=== PATIENT | female | born 1960 | race Caucasian/White ===

== ENCOUNTER 2019-03-01 02:27 | Emergency (ER) | payer OTHER ==
--- NOTE | 2019-03-01 03:02 | PDOC ---
History of Present Illness - General Stated Complaint: ABD PAIN Time Seen by Provider: 03/01/19 03:01 - History of Present Illness Initial Comments: 03/01/19 05:56 The patient is a 58 year old female with a history of HIV on MANCIA, DM who presents for evaluation of nausea, vomiting, abdominal pain and diarrhea. The patient reports a 1 week history of burning poorly described epigastric abdominal pain with associated nausea and multiple episodes of non-bilious, non- bloody vomiting as well as non-bloody diarrhea prompting her presentation to the ED for further evaluation. She otherwise denies sick contacts, recent travel, SOB, chest pain, or changes with urination. Past History - Travel Traveled outside of the country in the last 30 days: No - Past Medical History Allergies/Adverse Reactions: Allergies Allergy/AdvReac Type Severity Reaction Status Date / Time No Allergy Information Allergy Verified 03/01/19 03:54 Available Home Medications: Ambulatory Orders metroNIDAZOLE [Flagyl -] 500 mg PO TID #21 tablet 03/01/19 Diabetes: Yes HIV: Yes Review of Systems - Review of Systems Comments:: 03/01/19 06:07 Constitutional: No fevers, chills, fatigue, malaise HEENT: No Rhinorrhea, nasal congestion, visual changes Cardiovascular: No chest pain, syncope, palpitations, lightheadedness Respiratory: No Cough, SOB, Hemoptysis, Gastrointestinal: Abdominal pain, Nausea, Vomiting, Diarrhea, No Constipation or Melena Genitourinary: No Dysuria, Frequency, Urgency, Hesitancy, Hematuria, Flank pain Musculoskeletal: No Myalgia, arthralgia Skin: No rashes, itching, bruising, pallor Neurologic: No Headache, Dizziness, Numbness, Weakness, or Tingling Psychiatric: No Hallucinations. No SI or HI *Physical Exam - Physical Exam 03/01/19 06:08 General Appearance: Nourished. No Apparent Distress HEENT: No Pharyngeal Erythema, Tonsillar Exudate, Tonsillar Erythema Neck: No Cervical Lymphadenopathy Respiratory/Chest: Lungs Clear, Normal Breath Sounds. No Crackles, Rales, Rhonchi, Wheezing Cardiovascular: Regular Rhythm, Regular Rate. No Murmur, Gallops, Rubs Gastrointestinal/Abdominal: Normal Bowel Sounds, Soft. Mild epigastric discomfort with palpation on exam. No Guarding, Rebound, Musculoskeletal: No CVA Tenderness Extremity: Normal Capillary Refill Integumentary: Normal Color, Dry, Warm Neurologic: Fully Oriented, Alert, Normal Mood/Affect, Normal Response, ED Treatment Course - LABORATORY CBC & Chemistry Diagram: 03/01/19 03:55 03/01/19 03:55 Medical Decision Making - Medical Decision Making 03/01/19 06:09 The patient is a 58 year old female with a history of HIV on MANCIA, DM who presents for evaluation of nausea, vomiting, abdominal pain and diarrhea. Given the patient's history and physical exam, we will obtain a cbc, cmp, lipase , troponin, ekg CT abdomen/pelvis to evaluate further. We will treat with tylenol, pepcid, iv fluids, flagyl here in the ED and continue to monitor and reassess. 03/01/19 06:10 CBC, cmp, lipase, troponin are unremarkable. CT abdomen/pelvis demonstrates a possible diarrheal illness but otherwise no acute findings as preliminarily read by our vice president mission integration radiologist. The patient was reassessed and reports improvement in their symptoms. We are comfortable discharging the patient home in stable condition with primary care provider follow up on flagyl. Patient was made aware of impression and plan, return precautions discussed including but not limited to worsening pain or symptoms, fevers, or signs of infection, chest pain, respiratory distress, inability to tolerate oral intake, dehydration, syncope, or neurologic changes. The patient is to follow up with PMD and specialist as recommended within 1 week, follow up information provided and the patient will call for an appointment. The patient is to take medications as instructed for duration of time and continue with supportive care, avoid triggers and precipitants. Patient is safe for outpatient follow-up. Discharge - Discharge Information Problems reviewed: Yes Clinical Impression/Diagnosis: Abdominal pain Qualifiers: Abdominal location: unspecified location Qualified Code(s): R10.9 - Unspecified abdominal pain Vomiting Qualifiers: Vomiting type: unspecified Vomiting Intractability: unspecified Nausea presence : unspecified Qualified Code(s): R11.10 - Vomiting, unspecified Condition: Stable Disposition: HOME - Additional Discharge Information Prescriptions: metroNIDAZOLE [Flagyl -] 500 mg PO TID #21 tablet - Follow up/Referral - Patient Discharge Instructions Patient Printed Discharge Instructions: DI for Abdominal Pain-Adult, DI for Vomiting -- Adult Additional Instructions: 1) Please follow-up with your primary care doctor in the next 2-3 days. Please call tomorrow to schedule a follow up appointment. If you cannot follow up with your doctor within 1 week please return to the Emergency Department for any urgent issues. 2) Your laboratory / imaging results were normal here in the ER. 3) If you have any worsening of symptoms or any other concerns, please return to the ER immediately. Return if worsening symptoms including fevers, headache, vomiting, visual or hearing disturbances, abdominal pain, chest pain, shortness of breath, syncope, dehydration, inability to take things by mouth/vomiting, altered mental status, or worsening concerning symptoms. 4) Please continue taking your home medications as directed. Side effects may include upset stomach, abdominal pain, vomiting, or diarrhea. Do not drink alcohol with your medications. - Post Discharge Activity
--- NOTE | 2019-03-01 03:12 | PDOC ---
Attending Attestation - Resident Resident Name: Jem Neelyel - ED Attending Attestation I have performed the following: I have examined & evaluated the patient, The case was reviewed & discussed with the resident, I agree w/resident's findings & plan - HPI HPI: 03/01/19 03:16 Pt has and pain N/V/D; she has HIV 03/01/19 20:38 SHe just got back from [place] and she has vomiting. Thinks she may have eaten something and gotten food poisoning. - Physicial Exam PE: 03/01/19 20:39 Abd soft NT ND; flat; +BS; no high pitched sounds No flank pain Pt has no swelling of her legs She has nofever and no chills. Pt is A+Ox3 and she has no distress. Pt is just worried because she is losing weight This has been ongoing for a week. - Medical Decision Making 03/01/19 04:47 Labs normal 03/01/19 05:54 Patient Name: MICHELE BELLE THIS IS A PRELIMINARY REPORT FROM [facility] DATE OF SERVICE: 2019-03-01 05:04:16 IMAGES: [id number] EXAM: ABDOMEN \T\ PELVIS CT WITH CONTR HISTORY: Pain vomiting and diarrhea. Rule out colitis. COMPARISON: None. FINDINGS: Lung bases are clear. The visualized cardiac chambers are normal size and configuration. Normal liver, gallbladder, pancreas, spleen, adrenal glands and kidneys. The stomach and small bowel are normal. Scattered liquid stool without colonic wall thickening may indicate a diarrheal illness. There is no aortic aneurysm. There is no significant retroperitoneal lymphadenopathy. The appendix is normal. The uterus and adnexal structures are normal. Urinary bladder is unremarkable. There is no pelvic free fluid. No discrete pelvic lymphadenopathy is identified. IMPRESSION: Possible diarrheal illness without colonic wall thickening. 03/01/19 05:57 Pt feels better. I will send her home with flagyl, as she likely picked up trini from , where she was visiting last week Heart Score/ECG Review - ECG Intrepretation Rhythm: Regular Rhythm - [place]: Normal - QRS Poor R Wave Progression: No Q Wave Present: No - ST and T Early Repolarization: No Non Specific ST-T Wave changes: No - ECG Impressions Normal ECG: Yes Non-specific ST Elevation: No Ischemic Changes: No Bradycardia: No Torsades juliana Pointes: No
[2019-03-01] MEDS ORDERED: SODIUM CHLORIDE 1,000 ML IV STA (03:18)
[2019-03-01] MEDS ORDERED: FAMOTIDINE 20 MG/50 ML IVPB 20 MG/50 ML MG IVPB ONE ×2 (03:18→04:54)
[2019-03-01] MEDS ORDERED: ACETAMINOPHEN 1000 MG/100 ML VIAL (NON FORMULARY) IVPB ONE (03:18)
[2019-03-01] MEDS ORDERED: ONDANSETRON 4 MG/2 ML VIAL IVPUSH ONE (03:18)
[2019-03-01 03:41] VITALS: BP 109/72; PULSE 90; TEMP 98.4; BMI 23.8
[2019-03-01 04:03] LABS: BASO % 0.3 % (0-2.0); EOS % 0.4 % (0-4.5); HEMATOCRIT 43.8 % (32.4-45.2); HEMOGLOBIN 14.5 GM/dL (10.7-15.3); LYMPH % 19.1 % (8-40); MCH 27.9 pg (25.7-33.7); MCHC 33.2 g/dl (32.0-36.0); MEAN CELL VOLUME 84.1 fl (80-96); MEAN PLT VOLUME 9.3 fl (7.5-11.1); MONO % 11.2 % (3.8-10.2); PLATELET COUNT 235 K/MM3 (134-434); WHITE BLOOD COUNT 9.3 K/mm3 (4.0-10.0)
[2019-03-01 04:27] LABS: AMYLASE 54 U/L (25-115); LIPASE 117 U/L (73-393)
[2019-03-01 04:32] LABS: ALBUMIN 3.2 g/dl (3.4-5.0); BILIRUBIN,TOTAL 0.3 mg/dL (0.2-1); CALCIUM 8.8 mg/dL (8.5-10.1); CREATININE 0.6 mg/dL (0.55-1.3); TOT PROT 6.7 g/dl (6.4-8.2)
--- NOTE | 2019-03-01 13:31 | EKG ---
Test Reason : Blood Pressure : / mmHG Vent. Rate : 095 BPM Atrial Rate : 095 BPM P-R Int : 116 ms QRS Dur : 092 ms QT Int : 374 ms P-R-T Axes : 063 068 060 degrees QTc Int : 469 ms NORMAL SINUS RHYTHM NORMAL ECG NO PREVIOUS ECGS AVAILABLE Confirmed by MD RACHID, IKE ([id number]) on 03/01/2019 1:30:59 PM Referred By: Confirmed By:IKE RASHID MD
== END 2019-03-01 06:45 | disposition home or self-care (01) ==
LOC: JER 02:27
PROC: 3E03329 Introduction of Other Anti-infective into Peripheral Vein, Percutaneous Approach (ICD-10-PCS; principal; 2019-03-01)
PROC: 3E03329 Introduction of Other Anti-infective into Peripheral Vein, Percutaneous Approach (ICD-10-PCS; 2019-03-01)
PROC: 3E033NZ Introduction of Analgesics, Hypnotics, Sedatives into Peripheral Vein, Percutaneous Approach (ICD-10-PCS; 2019-03-01)
PROC: 3E033GC Introduction of Other Therapeutic Substance into Peripheral Vein, Percutaneous Approach (ICD-10-PCS; 2019-03-01)
DX: R11.2 Nausea with vomiting, unspecified (principal); R19.7 Diarrhea, unspecified; E11.9 Type 2 diabetes mellitus without complications; Z21 Asymptomatic human immunodeficiency virus [HIV] infection status
CPT/HCPCS: 36415; 74177-TC; 80053; 82150; 82550; 83690; 84484; 85025; 93005; 93010; 96365; 96367; 96375; 99283-25; J0131; J7030; Q9967

== ENCOUNTER 2021-05-23 21:45 | Emergency (ER) | payer OTHER ==
[2021-05-23] MEDS ORDERED: ONDANSETRON 4 MG/2 ML VIAL IVPUSH ONE (21:56)
[2021-05-23] MEDS ORDERED: ACETAMINOPHEN 1000 MG/100 ML BAG IVPB ONE (21:56)
[2021-05-23] MEDS ORDERED: FAMOTIDINE 20 MG/50 ML IVPB 20 MG/50 ML MG IVPB ONE ×2 (21:56→22:25)
[2021-05-23] MEDS ORDERED: SODIUM CHLORIDE 1,000 ML IV STA (21:56)
[2021-05-23 22:05] VITALS: BP 134/59; PULSE 84; TEMP 98.5; BMI 23.8
[2021-05-23] MEDS ORDERED: ONDANSETRON 4 MG/2 ML VIAL ONE (22:24)
[2021-05-23] MEDS ORDERED: ACETAMINOPHEN INJECTION 100 ML IVPB ONE (22:25)
[2021-05-23 23:13] LABS: VENOUS O2 SATURATION 40.3 % (70-80); VENOUS PCO2 59.4 mmHg (38-52); VENOUS PH 7.292 (7.310-7.410)
[2021-05-23 23:40] LABS: BASO % 0.3 % (0-2.0); EOS % 0.1 % (0-4.5); HEMOGLOBIN 13.8 GM/dL (10.7-15.3); LYMPH % 6.7 % (8-40); MCH 27.8 pg (25.7-33.7); MEAN CELL VOLUME 84.1 fl (80-96); MEAN PLT VOLUME 9.9 fl (7.5-11.1); MONO % 5.5 % (3.8-10.2); NEUT % 87.4 % (42.8-82.8); PLATELET COUNT 229 10^3/uL (134-434); RBC 4.99 M/mm3 (3.60-5.2); RDW 13.5 % (11.6-15.6); WHITE BLOOD COUNT 14.3 K/mm3 (4.0-10.0)
[2021-05-23 23:51] LABS: CHLORIDE 102 mmol/L (98-107); SODIUM 139 mmol/L (136-145)
[2021-05-23 23:53] LABS: CALCIUM 9.5 mg/dL (8.5-10.1)
[2021-05-23 23:54] LABS: ANION GAP 9 MMOL/L (8-16); BLOOD UREA NITROGEN 7.9 mg/dL (7-18); CO2 28 mmol/L (21-32); LIPASE 324 U/L (73-393)
[2021-05-23 23:58] LABS: CREATININE 0.9 mg/dL (0.55-1.3); PHOSPHOROUS 4.1 mg/dL (2.5-4.9); SGOT/AST 16 U/L (15-37); SGPT/ALT 24 U/L (13-61); TOT PROT 7.7 g/dl (6.4-8.2)
[2021-05-23 23:59] LABS: BILIRUBIN,TOTAL 0.6 mg/dL (0.2-1)
[2021-05-24] LABS: ALK PHOS 123 U/L (45-117)
[2021-05-24 00:58] LABS: GLUCOSE,RANDOM 449 mg/dL (74-106)
[2021-05-24] MEDS ORDERED: SODIUM CHLORIDE 1,000 ML IV STA (01:08)
== END 2021-05-24 02:19 | disposition home or self-care (01) ==
LOC: FER 21:45
PROC: 3E033GC Introduction of Other Therapeutic Substance into Peripheral Vein, Percutaneous Approach (ICD-10-PCS; principal; 2021-05-23)
DX: R10.84 Generalized abdominal pain (principal); R11.10 Vomiting, unspecified; R19.7 Diarrhea, unspecified
CPT/HCPCS: 36415; 80053; 82010; 82803; 82962; 83690; 84100; 85025; 87804; 99284-25; C9803-CS; U0003; U0005